=== PATIENT | female | born 1980 | race Caucasian/White ===

== ENCOUNTER 2016-10-11 10:33 | Emergency (ER) | payer OTHER ==
[~2016-10-11] VITALS: Ht 160 cm; Wt 71.0 kg
[2016-10-11 10:38] VITALS: Ht 160 cm; Wt 71.0 kg
--- NOTE | 2016-10-11 11:38 | ERD ---
ER Documentation Chief Complaint Date/Time DATE: 10/11/16 TIME: 11:33 Chief Complaint congestion x 1.5 weeks, feeling sob x 30 min ago HPI Otherwise healthy 36-year-old female presents the emergency department for complaints of cough, congestion, and runny nose 10 days. Patient also states that she experienced vomiting for the past 2-3 days which is mostly followed a coughing episode. Patient denies any abdominal pain diarrhea, fever, chills, dysuria, hematuria, or vaginal discharge. She does not have a history of asthma. Denies nausea currently. Last bowel movement was today and normal for her. Patient notes she is 1 week past due for her period. ROS All systems reviewed and are negative except as per history of present illness. PMhx/Soc Medical and Surgical Hx: pt denies Medical Hx, pt denies Surgical Hx Hx Alcohol Use: Yes Hx Substance Use: No Hx Tobacco Use: No Smoking Status: Never smoker Physical Exam Vitals Vital Signs Date Time Temp Pulse Resp B/P Pulse Ox O2 Delivery O2 Flow Rate FiO2 10/11/16 10:38 98.7 107 20 173/79 98 Physical Exam Const: Well-developed, well-nourished, no acute distress Head: Atraumatic Eyes: Normal Conjunctiva ENT: Normal External Ears, Nose and Mouth. Tympanic membranes without erythema or bulging bilaterally. Posterior pharynx non-erythematous and without tonsillar swelling or exudate. Neck: Full range of motion..~ No meningismus. Resp: Clear to auscultation bilaterally, no wheezes, rhonchi, rales Cardio: Regular rate and rhythm, no murmurs Abd: Soft, non tender, non distended. Normal bowel sounds. Negative McBurney point tenderness. Negative Myrick sign Skin: No petechiae or rashes Back: No midline or flank tenderness Ext: No cyanosis, or edema Neur: Awake and alert Psych: Normal Mood and Affect Procedures/MDM 36-year-old otherwise healthy female who presents emergency department complaining of cough, runny nose, congestion and posttussive emesis. ENT exam unremarkable and patient does not exhibit any abdominal tenderness to palpation. POC urine negative. Patient's blood pressure was elevated (>120/80) but appears stable without evidence of hypertension emergency or urgency. The patient was counseled about the risks of hypertension and urged to pursue outpatient monitoring and therapy within a week with their primary care physician. The patient's clinical presentation is very consistent with an acute viral syndrome. The patient does not exhibit any clinical signs or symptoms concerning for serious bacterial infection or systemic illness. Based on history and clinical exam findings the patient does not appear to have evidence of pneumonia, strep pharyngitis, urinary tract infection, bacteremia, sepsis, or meningitis. For these reasons I do not believe it is necessary to obtain laboratory testing or diagnostic imaging. I believe it would be appropriate for symptom control, and close outpatient primary care follow-up. Departure Diagnosis: Primary Impression: Chest congestion Additional Impressions: Vomiting Vomiting type: unspecified Vomiting Intractability: unspecified Nausea presence: unspecified Qualified Code: R11.10 - Vomiting, intractability of vomiting not specified, presence of nausea not specified, unspecified vomiting type Cough DEL RUCKER PA-C October 11, 2016 11:38
[2016-10-11] MEDS ORDERED: IBUP-1542 PO (11:54)
[2016-10-11] MEDS ORDERED: ALBU8.5H3 INH (11:54)
[2016-10-11] MEDS ORDERED: AZIT250T94 PO (11:54)
[2016-10-11] MEDS ORDERED: ONDA4TAB14 PO (11:54)
[2016-10-11] MEDS ORDERED: GUAI-106 PO (11:54)
== END 2016-10-11 12:12 | disposition home or self-care (01) ==
LOC: FTE 10:33
DX: R09.89 Other specified symptoms and signs involving the circulatory and respiratory systems (principal); R05 Cough; R11.10 Vomiting, unspecified
CPT/HCPCS: 99284